=== PATIENT | male | born 1935 | race Caucasian/White ===

== ENCOUNTER → 2016-12-14 | Outpatient (CLI) | payer MEDICARE ==
[~2016-12-14] MED LIST: ASPI-611 PO; ATOR20TA18 PO; CETI10TA56 PO; LISI-126 PO; MULT-806 PO; OMEG500C7 PO
== END ==
LOC: NWCC 09:22
PROVIDERS: ATTEND Internal Medicine
DX: L97.412 Non-pressure chronic ulcer of right heel and midfoot with fat layer exposed (principal); G60.9 Hereditary and idiopathic neuropathy, unspecified; B95.7 Other staphylococcus as the cause of diseases classified elsewhere
CPT/HCPCS: 11042; 87070; 87075; 87077; 87147; 87186; 87205; A6021

== ENCOUNTER → 2016-12-21 | Outpatient (CLI) | payer MEDICARE ==
[~2016-12-21] MED LIST changes: +SALINE FLUSH 10ml SYRINGE IVF ONE
== END ==
LOC: NWCC 08:46
PROVIDERS: ATTEND Internal Medicine
DX: L97.412 Non-pressure chronic ulcer of right heel and midfoot with fat layer exposed (principal); G60.9 Hereditary and idiopathic neuropathy, unspecified
CPT/HCPCS: 11042

== ENCOUNTER → 2017-01-04 | Outpatient (CLI) | payer MEDICARE ==
[~2017-01-04] MED LIST changes: -SALINE FLUSH 10ml SYRINGE IVF ONE
== END ==
LOC: NWCC 08:49
PROVIDERS: ATTEND Internal Medicine
DX: L97.412 Non-pressure chronic ulcer of right heel and midfoot with fat layer exposed (principal); G60.9 Hereditary and idiopathic neuropathy, unspecified; L53.9 Erythematous condition, unspecified; B96.89 Other specified bacterial agents as the cause of diseases classified elsewhere
CPT/HCPCS: 11042; 87070; 87075; 87077; 87186; 87205; A6021

== ENCOUNTER → 2017-01-10 | Outpatient (CLI) | payer MEDICARE ==
--- NOTE | 2017-01-10 20:42 | WOUNDCONF ---
DATE OF CONSULTATION January 10, 2017 CHIEF COMPLAINT Infectious Disease consultation was requested for antibiotic recommendations for chronic wound involving the right foot. HISTORY OF PRESENT ILLNESS Mr. Li is an 81-year-old man who has a history of chronic wound to the right plantar foot first metatarsal head area for about three years according to the patient and his . He reports that he has always had a callus there recently and that Dr. Lopes had removed it twice and it healed twice but more recently it has not healed. Approximately six months ago Dr. Lopes removed a callus there and there was purulence that drained from it. Since that time it has not healed. He had a wound VAC on there from August through September for about six weeks and it improved. His reports that he has had increased redness over his foot and specifically she states that when he is off of antibiotics the redness seems to get worse. She also reports a history of tunneling. He had lower extremity arterial Dopplers done December 25 which were normal. He had a wound culture obtained January 04 which showed few gram-negative rods, few gram-positive cocci in pairs and a few gram-positive rods on the Gram stain and the culture grew E-coli resistant only to ampicillin and Bactrim, and Enterococcus faecalis which was sensitive to ampicillin. He had an MRI of the right foot with and without contrast on November 16 which showed a small amount of edema within the medial sesamoid bone but no definite enhancement. No fluid collection or abscess noted. There is no significant concern for osteomyelitis according to the MRI report. PAST MEDICAL HISTORY Gout. He states that in the past he has had gout involving this foot. He has a history of back surgery leading to numbness and neuropathy in the right foot only. Hyperlipidemia. History of spinal stenosis. Coronary artery disease. Benign prostatic hypertrophy. Right bundle branch block. PAST SURGICAL HISTORY He had back surgery by Dr. Camara which was a decompressive laminectomy in 2012. He has had prostate biopsy. Heart catheterization in 1995 with stent placement in 2010. ALLERGIES Zocor. SOCIAL HISTORY He is . He is retired. Denies any tobacco or alcohol use. REVIEW OF SYSTEMS He denies any fevers, chills or sweats. He denies any nausea, vomiting or diarrhea. Denies any pain in this foot because he has numbness there. He denies any chest pain, cough, shortness of breath. He denies any headaches or visual changes. The rest of the review of systems is negative other than that mentioned above. PHYSICAL EXAMINATION VITAL SIGNS: Temperature 96.3, blood pressure 125/72, pulse 64, respirations 18. GENERAL: He appears comfortable and is in no acute distress. HEENT: Pupils are equal, round, reactive to light. Extraocular movements intact. Oropharynx is clear. Dentition is fair. NECK: Supple. HEART: Regular rate and rhythm. No murmurs noted. LUNGS: Clear to auscultation bilaterally anteriorly. ABDOMEN: Soft, nontender. He has bowel sounds present. EXTREMITIES: No significant peripheral edema. No joint effusions are noted. The right foot is noted to have a wound on the plantar aspect of the first metatarsal head. The wound appears clean and without any significant erythema although there is some chronic-appearing erythema and some edema medially near the first MTP joint area. There is no tenderness to palpation. He has no exposed bone noted. NEUROLOGIC: Exam is grossly nonfocal. He is alert and oriented x 3. Speech is normal. PSYCHIATRIC: His affect is appropriate. SKIN: No rashes. IMPRESSION 1. 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 2. 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 3. History of gout. 4. Hypertension. 5. Coronary artery disease. 6. Hyperlipidemia. RECOMMENDATIONS I reviewed his records and he has had multiple courses of oral antibiotics. Even though the MRI does not definitively show evidence of osteomyelitis I think the chronicity of this wound is concerning for a deep bone infection. I discussed with him that we could try broad-spectrum IV antibiotics for six weeks to see if that helps this wound heal. I told him that I can't guarantee that that will work but hopefully it will help with wound healing. The patient is interested in that option. I will have a PICC line placed and start him on daptomycin at 6 mg/kg IV daily and Invanz 1 g IV daily for six weeks. I will monitor weekly labs. I recommended that he hold his atorvastatin while he is on the daptomycin. I will plan to see him back in followup in three weeks. Thank you for allowing me to participate in the care of this patient. GERALDINE
== END ==
LOC: NWCC 08:49
PROVIDERS: ATTEND Internal Medicine Infectious Disease
DX: L97.412 Non-pressure chronic ulcer of right heel and midfoot with fat layer exposed (principal); G60.9 Hereditary and idiopathic neuropathy, unspecified; I10 Essential (primary) hypertension; I25.10 Atherosclerotic heart disease of native coronary artery without angina pectoris; E78.5 Hyperlipidemia, unspecified
CPT/HCPCS: A6021; A6210; G0463

== ENCOUNTER → 2017-01-18 | Outpatient (CLI) | payer MEDICARE | LOC: NWCC 09:06 | PROVIDERS: ATTEND Internal Medicine | DX: L97.412 Non-pressure chronic ulcer of right heel and midfoot with fat layer exposed (principal); G60.9 Hereditary and idiopathic neuropathy, unspecified | CPT/HCPCS: 11042; A6209 ==

== ENCOUNTER → 2017-01-31 | Outpatient (CLI) | payer MEDICARE ==
--- NOTE | 2017-01-31 14:48 | WOUNDPNF ---
DATE January 31, 2017 CHIEF COMPLAINT Followup for chronic wound involving the right foot. HISTORY OF PRESENT ILLNESS Mr. Li is an 81-year-old man with a history of chronic wound to the right plantar foot, first metatarsal head area for about three years. He has had a callus there that was removed about six months ago by Dr. Lopes and then there was purulence that drained from that. Since that time it has not healed. He was treated with a wound VAC from August through September and it improved. However, there were concerns about increasing redness and swelling of this foot when he is off antibiotics as well as a history of tunneling. He had an MRI of the right foot with and without contrast November 16 which showed a small amount of edema within the medial sesamoid bone but no definite enhancement, no definite osteomyelitis was noted. He had a wound culture collected January 04 which had few gram-negative rods, few gram-positive cocci in pairs, few gram-positive rods on the gram stain and it grew E. coli resistant only to ampicillin and Bactrim and Enterococcus faecalis sensitive to ampicillin and diphtheroids. Actually there were two strains of E. coli reported on this culture but the susceptibilities were the same. He was started on daptomycin 6 mg/kg IV daily and Invanz 1 g IV daily on January 10 for six weeks. He comes in today for followup after being on the antibiotics for about three weeks. He denies any specific problems. He has had some slightly loose stools but denies any diarrhea. PAST MEDICAL HISTORY/ PAST SURGICAL HISTORY Were reviewed. ALLERGIES Listed to Zocor. SOCIAL HISTORY Was reviewed. REVIEW OF SYSTEMS He denies any fevers, chills or sweats. He denies any nausea or vomiting. He reports some loose stools but denies diarrhea. Denies any rashes or itching. He reports that his wound appears to be healing and denies any pain there. PHYSICAL EXAMINATION VITALS: Temperature 98.7, blood pressure 121/72, pulse 66, respirations 20. GENERAL: In general he appears comfortable in no acute distress. HEENT: Pupils equal, round, reactive to light. Extraocular muscles are intact. Oropharynx is clear. NECK: Supple. HEART: Regular rate and rhythm. No murmurs noted. LUNGS: Clear to auscultation bilaterally anteriorly. ABDOMEN: Soft and nontender. He has bowel sounds present. No guarding or rebound. EXTREMITIES: No significant peripheral edema. No joint effusions are noted. The right foot has a wound on the plantar aspect of the first metatarsal head which appears clean and without any significant erythema. It appears fairly superficial and he does not have any tenderness to palpation around this area. NEURO: Exam is grossly nonfocal. He is alert and oriented x3. Speech is normal. SKIN: No rashes. He has a PICC line which is without any surrounding redness or edema. PSYCHIATRIC: His affect and mood are appropriate. LABORATORY Laboratory was reviewed. His labs from January 29 show white count 5.9, hemoglobin 13.2, platelets 176. CRP was 12.5 and sed rate was 25. His CRPs from January 22, January 15, and January 10 were all less than 5 and his sed rate from January 22 was 19. His sed rate from January 15 was 17. His creatinine is 1.2. IMPRESSION 1. 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 2. 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 3. History of gout. 4. Hypertension, coronary artery disease. 5. Hyperlipidemia. RECOMMENDATIONS I would continue with the daptomycin and Invanz for another three weeks which would complete a six-week course on February 21, 2017. I will continue to monitor his weekly labs. I will plan to see him back again on February 21. GERALDINE
== END ==
LOC: NWCC 08:23
PROVIDERS: ATTEND Internal Medicine Infectious Disease
DX: L97.412 Non-pressure chronic ulcer of right heel and midfoot with fat layer exposed (principal); G60.9 Hereditary and idiopathic neuropathy, unspecified; L53.9 Erythematous condition, unspecified; I25.10 Atherosclerotic heart disease of native coronary artery without angina pectoris; I10 Essential (primary) hypertension; E78.5 Hyperlipidemia, unspecified
CPT/HCPCS: 11042

== ENCOUNTER → 2017-02-12 | Outpatient (CLI) | payer MEDICARE ==
[~2017-02-12] MED LIST changes: +SALINE FLUSH 10ml SYRINGE IVF ONE
== END ==
LOC: NWCC 08:01
PROVIDERS: ATTEND Internal Medicine
DX: L97.412 Non-pressure chronic ulcer of right heel and midfoot with fat layer exposed (principal); L98.491 Non-pressure chronic ulcer of skin of other sites limited to breakdown of skin; G60.9 Hereditary and idiopathic neuropathy, unspecified
CPT/HCPCS: 11042; A6021; A6209; A6212; G0463